=== PATIENT | female | born 1995 | race American Indian/Alaskan Native ===

== ENCOUNTER 2020-11-17 21:28 | Emergency (ER) | payer SELFPAY ==
[2020-11-17 22:15] VITALS: BP 103/74
[2020-11-17] MEDS ORDERED: predniSONE 50 MG TAB PO ONE (23:49)
[2020-11-17] MEDS ORDERED: ALBUTEROL 2.5 MG/3 ML NEBU IH ONE (23:49)
[2020-11-17] MEDS ORDERED: IPRATROPIUM/ALBUTEROL SULFATE 3 ML AMPUL.NEB IH ONE (23:49)
[2020-11-17] MEDS ORDERED: IBUPROFEN 400 MG TAB PO ONE (23:50)
--- NOTE | 2020-11-18 | Emergency Department Report ---
ED Shortness of Breath HPI - General Chief Complaint: Dyspnea/Respdistress Stated Complaint: SHOULDER PAIN, COUGH,DAWNA Source: patient Mode of arrival: Ambulatory Limitations: No Limitations - History of Present Illness Initial Comments: Patient is a 25-year-old -Greek female with history of asthma and chronic heavy tobacco abuse who presents to the ED with complaint of acute onset persistent nasal and sinus congestion, persistent dry cough, wheezing, shortness of breath for the last 3 days. Patient states that she ran out of her inhaler over 7 months ago and has not had any refills on the same. Patient also complains of left lateral shoulder pain for the last 2 days. Patient states that she has not smoked cigarettes in the last 3 weeks. Patient states that the symptoms have worsened in the last 12 hours. Patient denies dizziness, syncope, fever, chills, nausea, vomiting, sore throat, chest pain, change in vision, abdominal pain, palpitations, hemoptysis or diarrhea. MD Complaint: shortness of breath, cough, "asthma attack" -: Sudden, days(s) (3) Severity: moderate Pain Scale: 6 Quality: dull Consistency: constant Improves With: nothing Worsens With: coughing Known History Of: asthma Context: recent URI, allergen exposure, anxiety Associated Symptoms: cough Treatments Prior to Arrival: none - Related Data Home Oxygen Therapy: No Previous Rx's Medication Instructions Recorded Last Taken Type Albuterol Sulfate [Proventil Hfa] 1 - 2 puff IH Q6H PRN #1 hfa.aer.ad 11/18/20 Unknown Rx Benzonatate [Tessalon Perles] 100 mg PO Q8HR #30 capsule 11/18/20 Unknown Rx Ibuprofen [Motrin] 400 mg PO Q8H PRN #24 tablet 11/18/20 Unknown Rx cephALEXin [Keflex] 500 mg PO Q8HR #21 cap 11/18/20 Unknown Rx predniSONE [Deltasone] 40 mg PO QDAY #10 tab 11/18/20 Unknown Rx Allergies Allergy/AdvReac Type Severity Reaction Status Date / Time No Known Allergies Allergy Unverified 11/17/20 22:10 ED Review of Systems ROS: Stated complaint: SHOULDER PAIN, COUGH,DAWNA Other details as noted in HPI Constitutional: denies: chills, fever Eyes: denies: eye pain, eye discharge, vision change ENT: congestion. denies: ear pain, throat pain Respiratory: cough, shortness of breath, wheezing Cardiovascular: denies: chest pain, palpitations Endocrine: no symptoms reported Gastrointestinal: denies: abdominal pain, nausea, diarrhea Genitourinary: denies: urgency, dysuria, discharge Musculoskeletal: arthralgia (Left lateral shoulder pain). denies: back pain, joint swelling Skin: denies: rash, lesions Neurological: denies: headache, weakness, paresthesias Psychiatric: denies: anxiety, depression Hematological/Lymphatic: denies: easy bleeding, easy bruising ED Past Medical Hx - Past Medical History Previous Medical History?: No Hx Asthma: Yes - Surgical History Past Surgical History?: No - Social History Smoking Status: Current Every Day Smoker Substance Use Type: None - Medications Home Medications: Home Medications Medication Instructions Recorded Confirmed Last Taken Type Albuterol Sulfate [Proventil Hfa] 1 - 2 puff IH Q6H PRN #1 hfa.aer.ad 11/18/20 Unknown Rx Benzonatate [Tessalon Perles] 100 mg PO Q8HR #30 capsule 11/18/20 Unknown Rx Ibuprofen [Motrin] 400 mg PO Q8H PRN #24 tablet 11/18/20 Unknown Rx cephALEXin [Keflex] 500 mg PO Q8HR #21 cap 11/18/20 Unknown Rx predniSONE [Deltasone] 40 mg PO QDAY #10 tab 11/18/20 Unknown Rx ED Physical Exam - General Limitations: No Limitations General appearance: alert, in no apparent distress - Head Head exam: Present: atraumatic, normocephalic, normal inspection - Eye Eye exam: Present: normal appearance, PERRL, EOMI Pupils: Present: normal accommodation - ENT ENT exam: Present: normal exam, normal orophraynx, mucous membranes moist, TM's normal bilaterally, normal external ear exam - Neck Neck exam: Present: normal inspection, full ROM. Absent: tenderness, lymphadenopathy - Respiratory Respiratory exam: Present: normal lung sounds bilaterally, wheezes (Diffuse audible coarse wheezes throughout the lungs). Absent: respiratory distress, rales, rhonchi, chest wall tenderness, accessory muscle use, decreased breath sounds, prolonged expiratory - Cardiovascular Cardiovascular Exam: Present: regular rate, normal rhythm, normal heart sounds. Absent: systolic murmur, diastolic murmur, rubs, gallop - GI/Abdominal GI/Abdominal exam: Present: soft, normal bowel sounds. Absent: tenderness, guarding, rebound, hyperactive bowel sounds, hypoactive bowel sounds, organomegaly, mass - Extremities Exam Extremities exam: Present: normal inspection, full ROM, normal capillary refill - Back Exam Back exam: Present: normal inspection, full ROM. Absent: tenderness, CVA tenderness (R), CVA tenderness (L), muscle spasm, paraspinal tenderness, vertebral tenderness - Neurological Exam Neurological exam: Present: alert, oriented X3, CN II-XII intact, normal gait, reflexes normal - Psychiatric Psychiatric exam: Present: normal affect, normal mood - Skin Skin exam: Present: warm, dry, intact, normal color. Absent: rash ED Course Vital Signs 11/17/20 22:12 Temperature 98.4 F Pulse Rate 78 Respiratory 18 Rate Blood Pressure 103/74 O2 Sat by Pulse 94 Oximetry ED Medical Decision Making - Radiology Data Radiology results: report reviewed, [place] [address] XRay Report Signed Patient: JEFF BUNDY MR# : [id number] : 1995 Acct:[id number] Age/Sex: 25 / F ADM Date: 11/17/20 Loc: ED Attending Dr: Ordering Physician: MAGGY LOZOYA Date of Service: 11/17/20 Procedure(s): XR chest routine 2V Accession Number(s): [id number] cc: MAGGY LOZOYA Fluoro Time In Minutes: CHEST 2 VIEWS INDICATION / CLINICAL INFORMATION: cough, asthma. COMPARISON: None available. FINDINGS: SUPPORT DEVICES: None. HEART / MEDIASTINUM: No significant abnormality. LUNGS / PLEURA: No significant pulmonary or pleural abnormality. No pneumothorax. ADDITIONAL FINDINGS: Bilateral nipple piercings IMPRESSION: 1. No acute findings. Signer Name: Gabriel Temple MD Signed: 11/18/2020 1:15 AM Workstation Name: [id number] Transcribed By: TL Dictated By: Gabriel Temple MD Electronically Authenticated By: Gabriel Temple MD Signed Date/Time: 11/18/20114 DD/ 4 TD/TT: Print - Medical Decision Making This is a 25-year-old -Greek female with history of asthma and chronic heavy tobacco abuse who presents to the ED with complaint of acute onset persistent nasal and sinus congestion, persistent dry cough, wheezing, shortness of breath for the last 3 days. Patient states that she ran out of her inhaler over 7 months ago and has not had any refills on the same. Patient also complains of left lateral shoulder pain for the last 2 days. Patient states that she has not smoked cigarettes in the last 3 weeks. In the ED, patient is alert and oriented x3 and is not in any distress. Patient received DuoNeb and albuterol treatments in the ED and also received oral prednisone tablet. Chest x-ray shows no acute cardiopulmonary abnormalities or pneumonitis. On reevaluation, patient's wheezing resolved with medications and patient was given a prescription of albuterol inhaler, oral prednisone tablets and cough medications. Patient was advised to follow-up with her primary care physician in 3 to 5 days for reevaluation. Patient is advised return to the ED immediately if symptoms get worse. - Differential Diagnosis Asthma; bronchitis; pneumonia; URI; COVID-19 Critical care attestation.: If time is entered above; I have spent that time in minutes in the direct care of this critically ill patient, excluding procedure time. ED Disposition Clinical Impression: Acute bronchitis with asthma with acute exacerbation, Acute urinary tract infection, Shortness of breath Disposition: DC-01 TO HOME OR SELFCARE Is pt being admited?: No Does the pt Need Aspirin: No Condition: Stable Instructions: Cough, Adult, [id number], Acute Bronchitis, Adult, [id number], Asthma, Adult, [id number], Acute Bronchitis (ED) Additional Instructions: Lab test results show significant urinary tract infection. Chest x-ray shows no acute cardiopulmonary abnormalities or pneumonitis. Therefore take medications as needed for shortness of breath and asthma exacerbations. Take antibiotics for acute urinary tract infection as advised. Return to the ED immediately if symptoms get worse. Otherwise follow-up with your primary care physician in 7 to 10 days for reevaluation. Prescriptions: predniSONE [Deltasone] 40 mg PO QDAY #10 tab cephALEXin [Keflex] 500 mg PO Q8HR #21 cap Ibuprofen [Motrin] 400 mg PO Q8H PRN #24 tablet PRN Reason: Pain , Severe (7-10) Albuterol Sulfate [Proventil Hfa] 1 - 2 puff IH Q6H PRN #1 hfa.aer.ad PRN Reason: Dyspnea Benzonatate [Tessalon Perles] 100 mg PO Q8HR #30 capsule Referrals: [facility] [Provider Group] - 3-5 Days Time of Disposition: 00:55 Print Language: MALAY
[2020-11-18 00:38] LABS: HCG Qualitative,Urine Negative (Negative)
[2020-11-18 00:45] LABS: Bacteria,Urine 1+ /HPF (Negative); Bilirubin,Urine NEG (Negative); Blood,Urine SM (Negative); Color,Urine Yellow (Yellow); Mucus,Urine FEW /HPF; Protein,Urine <15 mg/dL mg/dL (Negative); Urobilinogen,Urine < 2.0 mg/dL (<2.0)
--- NOTE | 2020-11-18 01:20 | XRay Report ---
CHEST 2 VIEWS INDICATION / CLINICAL INFORMATION: cough, asthma. COMPARISON: None available. FINDINGS: SUPPORT DEVICES: None. HEART / MEDIASTINUM: No significant abnormality. LUNGS / PLEURA: No significant pulmonary or pleural abnormality. No pneumothorax. ADDITIONAL FINDINGS: Bilateral nipple piercings IMPRESSION: 1. No acute findings. Signer Name: Gabriel Temple MD Signed: 11/18/2020 1:15 AM Workstation Name: [id number]
== END 2020-11-18 00:25 | disposition home or self-care (01) ==
LOC: ED 21:28
DX: J45.901 Unspecified asthma with (acute) exacerbation (principal); N39.0 Urinary tract infection, site not specified; R06.02 Shortness of breath; F17.200 Nicotine dependence, unspecified, uncomplicated; Z79.899 Other long term (current) drug therapy
CPT/HCPCS: 71046; 81001; 81025; 87086; 94640; 99284; J7512